=== PATIENT | female | born 1960 | race Caucasian/White ===

== ENCOUNTER → 2016-12-30 | Outpatient (REF) | payer OTHER ==
[~2016-12-30] MED LIST: MOTR200T44 PO; NAPR250T4; OXYB10TA
== END ==
LOC: M LAB REF 09:09
PROVIDERS: ATTEND Physician Assistant
DX: N39.0 Urinary tract infection, site not specified (principal)

== ENCOUNTER → 2017-01-03 | Outpatient (REF) | payer OTHER | LOC: M LAB REF 21:08 | PROVIDERS: ATTEND Physician Assistant Medical | DX: R30.0 Dysuria (principal) ==

== ENCOUNTER → 2017-02-03 | Outpatient (CLI) | payer OTHER ==
--- NOTE | 2017-02-03 10:11 | REP ---
RIGHT ANKLE SERIES: Four views of the right ankle are performed. There is no evidence of acute fracture or dislocation. Ankle mortise is anatomic. There is a tiny spur of the medial malleolus. There is moderate inferior calcaneal spurring. IMPRESSION: No fracture or dislocation. Inferior calcaneal spurring. Signed by Amilcar Menendez MD 02/03/2017 05:09 P
== END ==
LOC: M RAD 09:19
PROVIDERS: ATTEND Student in an Organized Health Care Education/Training Program
DX: M25.571 Pain in right ankle and joints of right foot (principal)

== ENCOUNTER → 2017-03-05 | Outpatient (REF) | payer OTHER ==
[2017-03-05 16:08] LABS: ANION GAP 11 MEQ/L (8-16); BLOOD UREA NITROGEN 25 MG/DL (7-18); CALCIUM LEVEL 8.6 MG/DL (8.5-10.1); CARBON DIOXIDE LEVEL 28 MEQ/L (21-32); CHLORIDE LEVEL 105 MEQ/L (98-107); CREATININE FOR GFR 0.64 MG/DL (0.55-1.02); GLOMERULAR FILTRATION RATE > 60.0 (>51); GLUCOSE, FASTING 98 MG/DL (70-105); POTASSIUM SERUM 3.9 MEQ/L (3.5-5.1); SODIUM LEVEL 144 MEQ/L (136-145)
== END ==
LOC: M SFHCPLAZ 12:31
PROVIDERS: ATTEND Family Medicine
DX: R79.89 Other specified abnormal findings of blood chemistry (principal)

== ENCOUNTER 2017-03-20 13:05 | Emergency (ER) | payer OTHER ==
[~2017-03-20] VITALS: Ht 154.9 cm; Wt 86.4 kg
[2017-03-20] MEDS ORDERED: OXYB10TA (13:32)
[2017-03-20] MEDS ORDERED: NAPR250T4 (13:32)
[2017-03-20] MEDS ORDERED: MOTR200T44 PO (13:32)
[2017-03-20 14:59] VITALS: BP 125/74
--- NOTE | 2017-03-21 08:01 | REP ---
RIGHT ANKLE, FOUR VIEWS: HISTORY: Pain. COMPARISON: 02/03/2017. There is no acute fracture or dislocation. The joint space is normal in appearance. Osteophytes are present on the inferior medial malleolus and inferior calcaneus. IMPRESSION: There is no acute fracture or dislocation. Signed by Junior Mayes MD 03/21/2017 08:21 A
== END 2017-03-20 15:06 | disposition home or self-care (01) ==
LOC: M ED 13:05
DX: M25.571 Pain in right ankle and joints of right foot (principal); Z87.891 Personal history of nicotine dependence; Z79.899 Other long term (current) drug therapy; Z88.1 Allergy status to other antibiotic agents; Z88.0 Allergy status to penicillin; Z88.2 Allergy status to sulfonamides

== ENCOUNTER 2017-05-20 16:44 | Emergency (ER) | payer OTHER ==
[~2017-05-20] VITALS: Ht 154.9 cm; Wt 81.8 kg
--- NOTE | 2017-05-20 17:54 | REP ---
Clinical: Pain. Technique: AP, lateral, bilateral oblique and sunrise views of the left knee. Findings: Moderate tricompartmental arthritic degenerative changes include subchondral sclerosis, joint space narrowing, cortical irregularity to the femoral condyles as well as subchondral sclerosis along the posterior patellar margin with small lateral spur. No acute fracture dislocation. No effusion. Impression: Moderate tricompartmental degenerative changes. Signed by Tevin Terry MD 05/20/2017 05:45 P
--- NOTE | 2017-05-20 18:29 | REP ---
Clinical: Pain and swelling. Technique: Menendez scale and color Doppler evaluation using linear high frequency transducer. Findings: Ultrasound examination of the left lower extremity deep venous structures from the common femoral vein to the popliteal vein demonstrates normal compressibility flow and wave patterns in response to respiration and augmentation. There is no evidence for deep venous thrombosis. Impression: No evidence for deep venous thrombosis. Signed by Tevin Terry MD 05/20/2017 06:20 P
[2017-05-20] MEDS ORDERED: ULTR50TA8 PO (19:41)
[2017-05-20 19:48] VITALS: BP 141/77
== END 2017-05-20 20:10 | disposition home or self-care (01) ==
LOC: M ED 16:44
DX: M17.12 Unilateral primary osteoarthritis, left knee (principal); J45.909 Unspecified asthma, uncomplicated; N94.9 Unspecified condition associated with female genital organs and menstrual cycle; Z79.899 Other long term (current) drug therapy; Z88.1 Allergy status to other antibiotic agents; Z88.8 Allergy status to other drugs, medicaments and biological substances; Z88.0 Allergy status to penicillin

== ENCOUNTER 2017-06-18 09:55 | Emergency (ER) | payer OTHER ==
[2017-06-18] MEDS: NS 1,000 ML IV (10:06)
[2017-06-18 10:15] LABS: BASO # 0.1 10^3/uL (0.0-0.2); BASO % 0.9 % (0.0-1.0); EOS # 0.2 10^3/uL (0.0-0.50); EOS % 2.6 % (0.0-3.0); IMMATURE GRANULOCYTE % 0.6 % (0-0); LYMPH # 1.3 10^3/uL (1.5-4.5); LYMPH % 20.5 % (24.0-44.0); MEAN CORPUSCULAR HEMOGLOBIN 30.6 pg (27.0-33.0); MEAN CORPUSCULAR HGB CONC 34.1 g/dl (32.0-36.5); MEAN CORPUSCULAR VOLUME 89.5 fl (80.0-96.0); MONO # 0.5 10^3/uL (0.0-0.8); MONO % 7.8 % (0.0-5.0); NEUTROPHILS # 4.4 10^3/uL (1.8-7.7); NEUTROPHILS % 67.6 % (36.0-66.0); PLATELET COUNT, AUTOMATED 294 10^3/uL (150-450); RED CELL DISTRIBUTION WIDTH 12.7 % (11.5-14.5); WHITE BLOOD COUNT 6.4 10^3/uL (4.0-10.0)
[2017-06-18 10:40] LABS: ALBUMIN 3.9 GM/DL (3.2-5.2); ALBUMIN/GLOBULIN RATIO 1.11 (1.00-1.93); ALKALINE PHOSPHATASE 82 U/L (45-117); ALT/SGPT 23 U/L (12-78); ANION GAP 5 MEQ/L (8-16); AST/SGOT 12 U/L (7-37); BILIRUBIN,DIRECT < 0.1 MG/DL (0.0-0.2); BILIRUBIN,TOTAL 0.4 MG/DL (0.2-1.0); BLOOD UREA NITROGEN 16 MG/DL (7-18); CALCIUM LEVEL 8.8 MG/DL (8.5-10.1); CARBON DIOXIDE LEVEL 28 MEQ/L (21-32); CHLORIDE LEVEL 106 MEQ/L (98-107); CREATININE FOR GFR 0.68 MG/DL (0.55-1.02); GLOMERULAR FILTRATION RATE > 60.0 (>51); GLUCOSE, FASTING 111 MG/DL (70-105); SODIUM LEVEL 139 MEQ/L (136-145); TOTAL PROTEIN 7.4 GM/DL (6.4-8.2)
[2017-06-18 11:35] LABS: AMORPHOUS SEDIMENT RFX SMALL (NEGATIVE); KETONE, URINE AUTO RFX NEGATIVE (NEGATIVE); LEUKOCYTE ESTERASE UR AUTO RFX NEGATIVE (NEGATIVE); MUCUS, URINE RFX SMALL (NEGATIVE); NITRITE, URINE AUTO RFX NEGATIVE (NEGATIVE); RBC, URINE AUTO RFX TNTC /HPF (0-3); SPECIFIC GRAVITY UR AUTO RFX 1.008 (1.002-1.035); SQUAM EPITHELIAL CELL UR AURFX 1 /HPF (0-6); WBC, URINE AUTO RFX 2 /HPF (0-3)
== END 2017-06-18 14:48 | disposition home or self-care (01) ==
LOC: M ED 09:55
DX: R10.9 Unspecified abdominal pain (principal); Z87.442 Personal history of urinary calculi; N20.0 Calculus of kidney; N28.1 Cyst of kidney, acquired; K57.90 Diverticulosis of intestine, part unspecified, without perforation or abscess without bleeding; J45.909 Unspecified asthma, uncomplicated; R32 Unspecified urinary incontinence; F17.200 Nicotine dependence, unspecified, uncomplicated; Z80.0 Family history of malignant neoplasm of digestive organs; Z80.3 Family history of malignant neoplasm of breast; Z83.49 Family history of other endocrine, nutritional and metabolic diseases; Z82.49 Family history of ischemic heart disease and other diseases of the circulatory system; Z79.899 Other long term (current) drug therapy; Z88.0 Allergy status to penicillin; Z88.2 Allergy status to sulfonamides; Z88.1 Allergy status to other antibiotic agents
CPT/HCPCS: 71020

== ENCOUNTER 2017-07-13 07:49 | Inpatient (IN) | payer OTHER ==
[2017-07-13] MEDS: LR 1,000 ML IV ×3 (08:15→17:52)
[2017-07-13] MEDS ORDERED: fentaNYL 100 MCG/2 ML INJECTION (J3010) As Ordered ×3 (09:55→15:04)
[2017-07-13] MEDS ORDERED: MIDAZOLAM INJ 2 MG/2 ML VIAL (J2250) As Ordered ×2 (09:55→11:45)
[2017-07-13] MEDS: MIDAZOLAM INJ 2 MG/2 ML VIAL (J2250) IV (10:14)
[2017-07-13] MEDS: fentaNYL 100 MCG/2 ML INJECTION (J3010) IV (10:14)
[2017-07-13] MEDS ORDERED: LIDOCAINE 2% INJ 100 MG/5 ML SDV (FOR ANES.) As Ordered (11:45)
[2017-07-13] MEDS ORDERED: PROPOFOL 200 MG/20 ML VIAL As Ordered (11:45)
[2017-07-13] MEDS ORDERED: dexameTHASONE 4 MG/ML 1ML VIAL (J1100) As Ordered ×2 (12:08)
[2017-07-13] MEDS ORDERED: ROPIvacaine 0.5% 30 ML INJECTION (J2795 PER 1MG) (12:43)
[2017-07-13] MEDS ORDERED: dexameTHASONE 10 MG/1 ML VIAL PRES.FREE (J1100) (12:43)
[2017-07-13] MEDS ORDERED: EPINEPHrine INJ 1 MG/ML 1ML AMP (12:43)
[2017-07-13] MEDS ORDERED: ONDANSETRON 4MG/2ML VIAL (J2405) As Ordered (15:05)
[2017-07-13] MEDS: BUPIVACAINE HCL 0.5% 30 ML VIAL As Ordered (15:19)
[2017-07-13] MEDS ORDERED: MORPHINE 10 MG/ML 1ML VIAL IV (16:15)
[2017-07-13] MEDS ORDERED: fentaNYL 100 MCG/2 ML INJECTION (J3010) IV (16:15)
[2017-07-13] MEDS ORDERED: MORPHINE 2 MG/ML 1ML SYRINGE IV (16:45)
[2017-07-13] MEDS: ONDANSETRON 4MG/2ML VIAL (J2405) IV (16:53)
[2017-07-13] MEDS: oxyCODONE 5MG TAB PO (16:53)
[2017-07-13] MEDS: PANTOPRAZOLE 40MG INJ (PROTONIX) (C9113) IV (18:53)
[2017-07-13] MEDS: ONDANSETRON 4 MG TAB (S0181) PO ×2 (20:07→23:56)
[2017-07-13] MEDS: ACETAMINOPHEN 500 MG TAB PO (22:26)
[2017-07-14] MEDS: oxyCODONE 5MG TAB PO ×4 (04:05→22:35)
[2017-07-14] MEDS: ONDANSETRON 4 MG TAB (S0181) PO (04:05)
[2017-07-14] MEDS: ACETAMINOPHEN 500 MG TAB PO ×3 (05:28→20:46)
[2017-07-14] MEDS: PANTOPRAZOLE 40MG TAB (PROTONIX) PO (09:03)
[2017-07-14] MEDS: VITAMIN D 1,000 INTERNATIONAL UNITS TABLET PO (09:03)
[2017-07-14] MEDS: ASPIRIN 81 MG CHEW TABLET PO ×2 (09:03→20:45)
[2017-07-15] MEDS: oxyCODONE 5MG TAB PO ×5 (02:48→21:26)
[2017-07-15] MEDS: ACETAMINOPHEN 500 MG TAB PO ×3 (05:40→21:25)
[2017-07-15] MEDS: VITAMIN D 1,000 INTERNATIONAL UNITS TABLET PO (08:43)
[2017-07-15] MEDS: ASPIRIN 81 MG CHEW TABLET PO ×2 (08:44→21:24)
[2017-07-15] MEDS: PANTOPRAZOLE 40MG TAB (PROTONIX) PO (08:44)
[2017-07-15] MEDS: ONDANSETRON 4 MG TAB (S0181) PO (08:47)
[2017-07-16] MEDS: oxyCODONE 5MG TAB PO ×3 (04:18→13:33)
[2017-07-16] MEDS: ACETAMINOPHEN 500 MG TAB PO ×2 (05:52→14:07)
[2017-07-16] MEDS: VITAMIN D 1,000 INTERNATIONAL UNITS TABLET PO (09:07)
[2017-07-16] MEDS: ASPIRIN 81 MG CHEW TABLET PO (09:07)
[2017-07-16] MEDS: PANTOPRAZOLE 40MG TAB (PROTONIX) PO (09:07)
== END 2017-07-16 16:30 | disposition home health service (06) | DRG 317 ==
LOC: M OR 07:49 → M MS5PR 17:35
PROC: 0LXV0ZZ Transfer Right Foot Tendon, Open Approach (ICD-10-PCS; principal; 2017-07-13 10:15)
PROC: 0LBN0ZZ Excision of Right Lower Leg Tendon, Open Approach (ICD-10-PCS; 2017-07-13 10:15)
DX: M21.41 Flat foot [pes planus] (acquired), right foot (principal); N32.81 Overactive bladder; M76.821 Posterior tibial tendinitis, right leg; J45.20 Mild intermittent asthma, uncomplicated; Z88.0 Allergy status to penicillin; Z88.2 Allergy status to sulfonamides; Z88.8 Allergy status to other drugs, medicaments and biological substances

== ENCOUNTER → 2018-05-05 | Outpatient (REF) | payer OTHER ==
[2018-05-06 10:47] LABS: HEPATITIS C VIRUS ABY INDEX 0.1 INDEX (<0.8)
[2018-05-06 10:47] LABS: HEPATITIS B SURFACE ANTIBODY NEGATIVE (POSITIVE); HEPATITIS B SURFACE ANTIGEN NEGATIVE (NEGATIVE)
== END ==
LOC: M SFHCPLAZ 15:05
DX: Z11.59 Encounter for screening for other viral diseases (principal)

== ENCOUNTER → 2018-05-20 | Outpatient (CLI) | payer OTHER | LOC: M RAD 13:57 | DX: N28.1 Cyst of kidney, acquired (principal); K76.0 Fatty (change of) liver, not elsewhere classified | CPT/HCPCS: 76775 ==

== ENCOUNTER → 2018-09-02 | Outpatient (REF) | payer OTHER ==
[~2018-09-02] MED LIST changes: +ACET30TAB PO; +ADVI200C5 PO; +ASPI1TAB PO; +CLIN150C14 PO; +NORCOTAB PO; +OXYC-403 PO; +OXYC-517 PO; +RANI150T PO; +TAGA200T3 PO; +TYLE325C PO; +ULTR50TA8 PO; +VITA100067 PO; +VITA400C7 PO; +VITA500T53 PO
[2018-09-02 13:44] LABS: C REACTIVE PROTEIN QUANTITATIV 1.35 MG/DL (0.00-0.30); RHEUMATOID FACTOR QUANT < 10.0 IU/ML (<15.0)
[2018-09-03 14:37] LABS: ANTINUCLEAR ANTIBODIES DIRECT Negative (Negative)
== END ==
LOC: M LABDRAW1 13:10
PROVIDERS: ATTEND Orthopaedic Surgery
DX: M19.041 Primary osteoarthritis, right hand (principal)

== ENCOUNTER → 2019-03-24 | Outpatient (REF) | payer OTHER ==
[~2019-03-24] MED LIST changes: +ACET-716 PO; -ACET30TAB PO; -ASPI1TAB PO; +ASPI81TA26 PO; +HYDR-3715 PO; -NORCOTAB PO; -OXYB10TA; +OXYB10TA23; +VITA500T17 PO; -VITA500T53 PO
[2019-03-24 21:30] LABS: APPEARANCE, URINE TURBID (CLEAR); BACTERIA, URINE AUTO NEGATIVE (NEGATIVE); BILIRUBIN, URINE AUTO NEGATIVE (NEGATIVE); BLOOD, URINE BLOOD 2+ (NEGATIVE); COLOR, URINE AMBER (YELLOW); GLUCOSE, URINE (UA) AUTO NEGATIVE (NEGATIVE); KETONE, URINE AUTO NEGATIVE (NEGATIVE); LEUKOCYTE ESTERASE, URINE AUTO 2+ (NEGATIVE); NITRITE, URINE AUTO NEGATIVE (NEGATIVE); PROTEIN, URINE AUTO 2+ mg/dL (NEGATIVE); RBC, URINE AUTO TNTC /HPF (0-3); SPECIFIC GRAVITY URINE AUTO 1.016 (1.002-1.035); SQUAMOUS EPITHELIAL CELL UR AU 3 /HPF (0-6); UROBILINOGEN, URINE AUTO 0.2 mg/dL (0.0-2.0); WBC, URINE AUTO TNTC /HPF (0-3)
== END ==
LOC: M LAB REF 09:03
PROVIDERS: ATTEND Physician Assistant
DX: N39.0 Urinary tract infection, site not specified (principal)

== ENCOUNTER → 2019-07-24 | Outpatient (CLI) | payer OTHER ==
[2019-07-24 11:31] LABS: HEMOGLOBIN 14.7 g/dl (12.0-15.5); MEAN CORPUSCULAR HEMOGLOBIN 29.9 pg (27.0-33.0); MEAN CORPUSCULAR VOLUME 93.7 fl (80.0-96.0); PLATELET COUNT, AUTOMATED 300 10^3/uL (150-450); RED BLOOD COUNT 4.91 10^6/uL (4.00-5.40); WHITE BLOOD COUNT 6.6 10^3/uL (4.0-10.0)
[2019-07-24 11:59] LABS: BLOOD UREA NITROGEN 19 MG/DL (7-18); CALCIUM LEVEL 9.6 MG/DL (8.8-10.2); CARBON DIOXIDE LEVEL 33 MEQ/L (21-32); CHLORIDE LEVEL 102 MEQ/L (98-107); CREATININE FOR GFR 0.82 MG/DL (0.55-1.30); FERRITIN 116 NG/ML (8-252); GLOMERULAR FILTRATION RATE > 60.0 (>45); GLUCOSE, FASTING 108 MG/DL (70-100); IRON (FE) 69 UG/DL (50-170); PERCENT SATURATION 12.2 % (13.2-45.0); POTASSIUM SERUM 4.1 MEQ/L (3.5-5.1); SODIUM LEVEL 138 MEQ/L (136-145); TOTAL IRON BINDING CAPACITY 566 UG/DL (250-450)
[2019-07-24 12:03] LABS: FOLATE > 24.0 NG/ML (>5.4); VITAMIN B12 LEVEL 1909 PG/ML (247-911)
[2019-07-24 12:04] LABS: HEMOGLOBIN A1c 6.1 %
== END ==
LOC: M LAB 10:36
PROVIDERS: ATTEND Hospitalist
DX: Z13.1 Encounter for screening for diabetes mellitus (principal); M79.605 Pain in left leg; Z87.19 Personal history of other diseases of the digestive system

== ENCOUNTER → 2019-08-14 | Outpatient (CLI) | payer OTHER ==
--- NOTE | 2019-08-14 15:49 | REP ---
BILATERAL SCREENING DIGITAL MAMMOGRAM WITH 3D TOMOSYNTHESIS: There are no palpable abnormalities or other breast complaints. The the patient states she has not had a clinical breast examination in over a year. The Tyrer-Cuzick Lifetime Breast Cancer Risk Score is: 16.6% . Comparison is 07/16/2009. The There are scattered areas of fibroglandular density. There is no dominant mass, micro calcific cluster or architectural distortion that would indicate malignancy. There is a sharply circumscribed a 10 mm nodular density superomedially in the right breast posteriorly. By previous ultrasound. This is a cyst. It is unchanged from the prior study. There are no additional findings on 3D tomosynthesiss. There is no change from the prior study. Impression: BIRADS/ACR category 2 mammogram. Benign findings. Recommendation: Routine annual screening mammography. This mammogram was interpreted with the aid of a FDA approved computer-aided detection system. A. Negative mammogram reports should not delay biopsy if a dominant or clinically suspicious mass is present. B. Not all breast cancers are identified by mammography or tomosynthesis. C. Adenosis and dense breasts may obscure an underlying neoplasm. Patient letter M1. Electronically Signed by Amilcar Crump MD 08/14/2019 03:41 P
== END ==
LOC: M WHC 14:43
PROVIDERS: ATTEND Hospitalist
DX: Z12.31 Encounter for screening mammogram for malignant neoplasm of breast (principal)

== ENCOUNTER → 2019-09-10 | Outpatient (REF) | payer MEDICAID ==
[2019-09-10 17:59] LABS: APPEARANCE, URINE HAZY (CLEAR); BACTERIA, URINE AUTO 1+ (NEGATIVE); BILIRUBIN, URINE AUTO NEGATIVE (NEGATIVE); BLOOD, URINE BLOOD 2+ (NEGATIVE); COLOR, URINE YELLOW (YELLOW); GLUCOSE, URINE (UA) AUTO NEGATIVE (NEGATIVE); KETONE, URINE AUTO NEGATIVE (NEGATIVE); LEUKOCYTE ESTERASE, URINE AUTO 1+ (NEGATIVE); MUCUS, URINE SMALL (NEGATIVE); NITRITE, URINE AUTO NEGATIVE (NEGATIVE); PROTEIN, URINE AUTO NEGATIVE (NEGATIVE); RBC, URINE AUTO 127 /HPF (0-3); SPECIFIC GRAVITY URINE AUTO 1.015 (1.002-1.035); SQUAMOUS EPITHELIAL CELL UR AU 2 /HPF (0-6); UROBILINOGEN, URINE AUTO 0.2 mg/dL (0.0-2.0); WBC, URINE AUTO 43 /HPF (0-3)
== END ==
LOC: M LAB REF 17:03
PROVIDERS: ATTEND Physician Assistant Medical
DX: R30.0 Dysuria (principal)

== ENCOUNTER 2019-12-25 19:25 | Inpatient (IN) | payer MEDICARE, OTHER ==
[~2019-12-25] VITALS: Ht 154.9 cm; Wt 114.6 kg
[2019-12-25] MEDS ORDERED: NS 1,000 ML IV SCH (19:54)
[2019-12-25] MEDS ORDERED: ONDANSETRON 4MG/2ML VIAL IV ONE (20:00)
[2019-12-25] MEDS ORDERED: MORPHINE 4 MG/ML 1ML VIAL/SYRINGE (J2270) IV ONE (20:00)
[2019-12-25 20:31] LABS: BASO # 0.1 10^3/uL (0.0-0.2); BASO % 0.6 % (0.0-1.0); EOS # 0.3 10^3/uL (0.0-0.5); EOS % 2.9 % (0.0-3.0); HEMATOCRIT 42.6 % (36.0-47.0); HEMOGLOBIN 14.1 g/dl (12.0-15.5); LYMPH % 20.8 % (24.0-44.0); MEAN CORPUSCULAR HEMOGLOBIN 29.9 pg (27.0-33.0); MEAN CORPUSCULAR HGB CONC 33.1 g/dl (32.0-36.5); MEAN CORPUSCULAR VOLUME 90.3 fl (80.0-96.0); MONO # 0.6 10^3/uL (0.0-0.8); MONO % 6.7 % (0.0-5.0); NEUTROPHILS # 6.5 10^3/uL (1.5-8.5); NEUTROPHILS % 68.4 % (36.0-66.0); PLATELET COUNT, AUTOMATED 295 10^3/uL (150-450); RED BLOOD COUNT 4.72 10^6/uL (4.00-5.40); WHITE BLOOD COUNT 9.6 10^3/uL (4.0-10.0)
[2019-12-25 20:52] LABS: ALBUMIN 3.7 GM/DL (3.2-5.2); ALT/SGPT 35 U/L (12-78); BILIRUBIN,DIRECT < 0.1 MG/DL (0.0-0.2); BILIRUBIN,TOTAL 0.3 MG/DL (0.2-1.0); BLOOD UREA NITROGEN 19 MG/DL (7-18); CALCIUM LEVEL 9.2 MG/DL (8.8-10.2); CARBON DIOXIDE LEVEL 26 MEQ/L (21-32); CHLORIDE LEVEL 104 MEQ/L (98-107); CREATININE FOR GFR 1.03 MG/DL (0.55-1.30); GLOMERULAR FILTRATION RATE 58.2 (>45); GLUCOSE, FASTING 101 MG/DL (70-100); LIPASE 227 U/L (73-393); POTASSIUM SERUM 4.2 MEQ/L (3.5-5.1); SODIUM LEVEL 139 MEQ/L (136-145); TOTAL PROTEIN 7.1 GM/DL (6.4-8.2)
[2019-12-25] MEDS ORDERED: KETOROLAC 30 MG/ML 1ML VIAL IV ONE (21:15)
[2019-12-25] MEDS ORDERED: CIPROFLOXACIN 400 MG in IV 1 EA IV ONE (22:15)
[2019-12-25] MEDS ORDERED: OXYB10TA23 PO (22:25)
[2019-12-25] MEDS ORDERED: TAGA200T3 PO (22:25)
[2019-12-25] MEDS ORDERED: PHEN-501 PO (22:25)
--- NOTE | 2019-12-25 22:29 | HPEPDOC ---
[facility] Medical History & Physical Date of Admission Dec 25, 2019 Date of Service: Dec 25, 2019 Attending Physician: Marie Cooper MD History and Physical CHIEF COMPLAINT: Right flank pain HISTORY OF PRESENT ILLNESS: Patient is a 59-year-old female with past medical history of recurrent kidney stones, history of recurrent urinary tract infection, obesity who presented to [facility] emergency room after having worsening right flank pain. Patient states she started having suprapubic pressure beginning in the evening on 12/24/19, felt that she was getting a urinary tract infection. Right flank pain started this AM, 10/10, sharp, shooting around the right flank towards the anterior groin. Patient has had this in the past with kidney stones but not this severe. Other associated symptoms include nausea from the pain. Denies fevers, chills, shortness of breath, diarrhea, recent illness, chest pain. In the ER, VS were stable. WBC and CMP were unremarkable. UA + for UTI. CT abdomen and pelvis showed 3 millimeter stone in the distal right ureter with mild hydronephrosis. The patient was given 1 mg of morphine which helped only minimally. Toradol IV helped some but only brought the pain down to 5 out of 10. Urology was contacted and recommended inpatient admission with urology consultation. The patient was admitted for right ureterolithiasis, urinary tract infection. REVIEW OF SYSTEMS: Negative except for what is mentioned above PAST MEDICAL HISTORY: 1. Hx of recurrent kidney stones, none ever needing intervention 2. Hx of recurrent urinary tract infections 3. Obesity PAST SURGICAL HISTORY: 1. Right ankle surgery 2. Total hysterectomy 3. Appendectomy FAMILY HISTORY: Father: cancer, type unknown. in 60's Mother: breast cancer. in 30's Siblings: sister- breast cancer, Alive SOCIAL HISTORY: Prior smoker, 8 years <1 PPD, quit 12 years ago. Social alcohol use, denies illicit drug use. PCP- Dr. Riojas. Full Code. ALLERGIES: Please see below. HOME MEDICATIONS: Please see below. PHYSICAL EXAMINATION: CONSTITUTIONAL: Appears very uncomfortable in pain. AAO x 3 EYES: PERRLA, EOM intact HENT, MOUTH: Normocephalic, atraumatic, moist mucous membranes, NECK: SUPPLE, no JVD, no lymphadenopathy, no carotid bruit CV: Regular rate and rhythm, S1S2 normal, no murmurs/rubs/gallops RESPIRATORY: Clear to auscultation bilaterally, no rales/rhonchi/wheezes GI: obese abdomen, BS positive in 4 quadrants, soft, nontender, nondistended, no rebound or guarding, no organomegaly BACK: right flank pain with palpation, pain radiates to the right groin with tapping over right kidney : Deferred MUSCULOSKELETAL: Normal ROM. No cyanosis, clubbing, swelling, joint deformity, extremity edema INTEGUMENTARY: Intact, no rashes, no lesions, no erythema NEUROLOGIC: Cranial Nerves II-XII are intact, no focal deficits PSYCHIATRIC: Mood and affect are normal LABORATORY DATA: Please see below IMAGING: CT abd/pelvis (prelim reading): 3 mm stone in right distal ureter, mild hydronephrosis ASSESSMENT: 59-year-old female with past medical history of recurrent kidney stones, history of recurrent urinary tract infection and obesity who was adm itted for right ureterolithiasis, urinary tract infection. PLAN: 1. Right ureterolithiasis with mild hydroureter -CT above -Cr wnl -C/w IVFs, morphine PRN -F/u daily labs, UCx -Urology consulted 2. UTI, hx of recurrent UTI -F/u UCx -Ceftriaxone 3. DVT px. -Enoxaparin daily DISPOSITION: Admitted under inpatient status. Urology to see in the AM. Plan is discharge home when medically improved. Vital Signs Vital Signs Date Time Temp Pulse Resp B/P (MAP) Pulse Ox O2 Delivery O2 Flow Rate FiO2 12/25/19 20:39 18 12/25/19 19:32 12/25/19 19:25 98.4 94 96 Room Air Laboratory Data Labs 24H Laboratory Tests 2 12/25/19 20:12: Immature Granulocyte % (Auto) 0.6, Neutrophils (%) (Auto) 68.4H, Lymphocytes (%) (Auto) 20.8L, Monocytes (%) (Auto) 6.7H, Eosinophils (%) (Auto) 2.9, Basophils (%) (Auto) 0.6, Neutrophils # (Auto) 6.5, Lymphocytes # (Auto) 2.0, Monocytes # (Auto) 0.6, Eosinophils # (Auto) 0.3, Basophils # (Auto) 0.1, Nucleated Red Blood Cells % (auto) 0.0, Urine Color KAREEN, Urine Appearance CLOUDYH, Urine pH 5.0, Urine Specific [place] 1.023, Urine Protein 1+H, Urine Glucose (UA) NEGATIVE, Urine Ketones NEGATIVE, Urine Blood 3+H, Urine Nitrite POSITIVEH, Urine Bilirubin NEGATIVE, Urine Urobilinogen 4.0H, Urine Leukocyte Esterase 1+H, Urine WBC (Auto) TNTCH, Urine RBC (Auto) TNTCH, Urine Hyaline Casts (Auto) 0, Urine Bacteria (Auto) 1+H, Urine Squamous Epithelial Cells 4, Urine Transitional Epithelial Cells <1, Urine Calcium Oxalate Cryst (Auto) SMALL, Urine Mucus (Auto) SMALL, Urine Sperm (Auto) , Anion Gap 9, Glomerular Filtration Rate 58.2, Calcium Level 9.2, Total Bilirubin 0.3, Direct Bilirubin < 0.1, Aspartate Amino Transf (AST/SGOT) 19, Alanine Aminotransferase (ALT/SGPT) 35, Alkaline Phosphatase 90, Total Protein 7.1, Albumin 3.7, Albumin/Globulin Ratio 1.1L, Lipase 227 CBC/BMP Laboratory Tests 12/25/19 20:12 Microbiology Microbiology 12/25/19 Urine Culture, Received Pending Home Medications Scheduled Cimetidine (Tagamet Hb) 200 Mg Tablet, 200 MG PO DAILY Oxybutynin Chloride (Oxybutynin Chloride ER) 10 Mg Tab.er.24, 10 MG PO DAILY Scheduled PRN Phenazopyridine HCl (Phenazopyridine HCl) 200 Mg Tablet, 200 MG PO TID PRN for PAIN Allergies Coded Allergies: Penicillins (Verified Allergy, Intermediate, HIVES, 12/25/19) Latex, Natural Rubber (Verified Allergy, Mild, RASH, 12/25/19) Sulfa (Sulfonamide Antibiotics) (Unverified Allergy, Unknown, 12/25/19) bacitracin (Verified Adverse Reaction, Mild, GENERALIZED BURNING, 12/25/19) neomycin (Verified Adverse Reaction, Mild, GENERALIZED BURNING, 12/25/19) polymyxin B (Verified Adverse Reaction, Mild, GENERALIZED BURNING, 12/25/19) A-FIB/CHADSVASC A-FIB History Current/History of A-Fib/PAF?: No Current PO Anticoag Therapy: No Age/Risk Factor Scoring CHADSVASC: CHADSVASC Response (Comments) Value Age Risk Factor Age < 65 years old 0 Gender Risk Factor Female 1 Hx of CHF No 0 Hx of HTN No 0 Hx of Stroke/TIA/or VTE No 0 Hx of Diabetes No 0 Hx of Vascular Disease No 0 Total 1 Treatment Treatment ordered: Other Other anticoagulant ordered: enoxaparin Marie Cooper MD Dec 25, 2019 22:29
[2019-12-25] MEDS ORDERED: ACETAMINOPHEN TAB 650MG DOSE (2X325MG) PO PRN (22:30)
[2019-12-25] MEDS ORDERED: MORPHINE 2 MG/ML 1ML VIAL (J2270) IV PRN ×2 (22:30→23:00)
[2019-12-25 23:20] VITALS: BP 132/94
[2019-12-25] MEDS: ACETAMINOPHEN TAB 650MG DOSE (2X325MG) PO SCH (23:38)
[2019-12-26] VITALS (7 sets, daily range): BP systolic 107–146; BP diastolic 63–98
[2019-12-26] MEDS: ONDANSETRON 4MG/2ML VIAL IV PRN ×2 (00:13→06:41)
[2019-12-26 01:09] LABS: INR 1.06; PROTHROMBIN TIME 13.5 SECONDS (11.8-14.0)
[2019-12-26 01:10] LABS: PARTIAL THROMBOPLASTIN TIME 30.3 SECONDS (25.0-38.4)
[2019-12-26] MEDS: NS 1,000 ML IV SCH ×3 (01:12→22:23)
[2019-12-26] MEDS ORDERED: MORPHINE 2 MG/ML 1ML VIAL (J2270) IV PRN (04:30)
[2019-12-26] MEDS: ACETAMINOPHEN TAB 650MG DOSE (2X325MG) PO SCH ×4 (05:54→23:05)
[2019-12-26 06:09] LABS: HEMATOCRIT 42.1 % (36.0-47.0); HEMOGLOBIN 13.8 g/dl (12.0-15.5); MEAN CORPUSCULAR HEMOGLOBIN 29.9 pg (27.0-33.0); MEAN CORPUSCULAR HGB CONC 32.8 g/dl (32.0-36.5); MEAN CORPUSCULAR VOLUME 91.3 fl (80.0-96.0); PLATELET COUNT, AUTOMATED 280 10^3/uL (150-450); RED BLOOD COUNT 4.61 10^6/uL (4.00-5.40); WHITE BLOOD COUNT 10.6 10^3/uL (4.0-10.0)
[2019-12-26 06:37] LABS: ALBUMIN 3.3 GM/DL (3.2-5.2); BILIRUBIN,TOTAL 0.4 MG/DL (0.2-1.0); CALCIUM LEVEL 8.7 MG/DL (8.8-10.2); CREATININE FOR GFR 1.2 MG/DL (0.55-1.30); GLOMERULAR FILTRATION RATE 48.8 (>45); POTASSIUM SERUM 4.5 MEQ/L (3.5-5.1); TOTAL PROTEIN 6.5 GM/DL (6.4-8.2)
[2019-12-26] MEDS ORDERED: NS 500 ML IV ONE (07:15)
[2019-12-26] MEDS ORDERED: CLINDAMYCIN 600 MG in IV 1 EA IV ONE (07:15)
--- NOTE | 2019-12-26 07:47 | SMCUROLCON ---
Urology Consultation General Date of Consultation 12/26/19 Reason For Consultation This patient is seen for Ureterolithiasis, Uti. History of Present Illness The patient is a 59-year-old white female with a past medical history for presumed calculi. She tells me that she was in her usual state of health until about 2 days ago when she began having some vague abdominal discomfort. This became right lower back pain and right lower quadrant abdominal pain by some nausea but no vomiting. Over the next 24 hours, this pain became more severe and she presented to the emergency room last night. CT imaging showed a 3 mm distal right ureteral calculus with some hydronephrosis. She was subsequently admitted for hydration, antibiotics and pain control. Urinalysis also was consistent with cystitis. She also states that she had 2 stones in the past, both about 1 year ago. At that time she was having some back pain. She states she went to the urgent care center and was told she had a stone with medications for pain. She claims she did not have any imaging and she did not pass any stones either time. She also did not have any follow-up for these episodes. She states that she normally drinks about 16 ounces of water daily, voids about 5 times a day and 2 times at night. No history of hematuria. Past Medical History Medical History Stomach ulcer 30 years ago, chronic back pain, urinary incontinence, asthma and elevated cholesterol and obesity Surgical Hstory Right ankle surgery. 2017 Hysterectomy. Appendectomy Social History Social History Patient quit smoking 3 years ago. She states that she smokes 1/2-1 pack cigarettes daily for 9 years. with 4 grown children. She has not worked since her foot surgery in 2017 and is on SSI disability because of her foot. She denies any allergies. However, several are listed in the chart. * Smoker: former Smoker Medications Current Medications Current Medications Medications (Trade) Dose Ordered Sig/Veronica Route PRN Reason Start Time Stop Time Status Last Admin Dose Admin Acetaminophen (Tylenol Tab) 650 mg Q6H PO 12/26/19 00:00 12/26/19 05:54 Acetaminophen (Tylenol Tab) 650 mg Q6HP PRN PO PAIN / FEVER 12/25/19 22:30 12/25/19 22:54 DC Ciprofloxacin 400 mg/IV Miscellaneous Supplies 200 ml @ 200 mls/hr Q12H IV 12/26/19 10:00 Enoxaparin Sodium (Lovenox) 40 mg DAILY SC 12/26/19 09:00 Home Med (Med Rec Complete!) ASDIRECTED XX 12/25/19 22:30 12/25/19 22:27 DC Morphine Sulfate (Morphine Sulfate Inj) 1 mg Q4H PRN IV MODERATE PAIN (PS 5-7) 12/25/19 23:00 12/26/19 01:14 Morphine Sulfate (Morphine Sulfate Inj) 1 mg Q6H PRN IV MODERATE PAIN (PS 5-7) 12/25/19 22:30 12/25/19 22:54 DC Morphine Sulfate (Morphine Sulfate Inj) 2 mg Q6H PRN IV SEVERE PAIN (PS 8-10) 12/26/19 04:30 12/26/19 06:42 Ondansetron HCl (ZOFRAN INJection) 4 mg Q6HP PRN IV NAUSEA OR VOMITING 12/25/19 23:00 12/26/19 06:41 Sodium Chloride 1,000 ml @ 100 mls/hr Q10H IV 12/26/19 00:15 12/26/19 01:12 Sodium Chloride 1,000 ml @ 150 mls/hr Q6H40M IV 12/25/19 19:54 12/26/19 00:18 DC 12/25/19 20:20 Allergies Allergies: Coded Allergies: Penicillins (Verified Allergy, Intermediate, HIVES, 12/25/19) Latex, Natural Rubber (Verified Allergy, Mild, RASH, 12/25/19) Sulfa (Sulfonamide Antibiotics) (Unverified Allergy, Unknown, 12/25/19) bacitracin (Verified Adverse Reaction, Mild, GENERALIZED BURNING, 12/25/19) neomycin (Verified Adverse Reaction, Mild, GENERALIZED BURNING, 12/25/19) polymyxin B (Verified Adverse Reaction, Mild, GENERALIZED BURNING, 12/25/19) Review of Systems General: Reports: Normal Appetite; Denies: Fatigue, Malaise Constitutional: Denies: Fever, Chills, Sweats, Weakness, Malaise Eyes: Denies: Pain, Vision change ENT: Denies: Head Aches, Sore Throat, Epistaxis Skin: Denies: Rash, Lesions, Breakdown, Nail Changes Pulmonary: Denies: Dyspnea, Cough Cardiovascular: Denies Chest Pain, Denies Palpitations Gastrointestinal: Denies: Nausea, Vomiting, Abdominal Pain Genitourinary: Reports: Incontinence; Denies: Dysuria, Frequency, Hematuria Hematologic: Denies: Bruising, Bleeding Excessively Endocrine: Denies: Polydipsia, Polyphagia, Polyuria Musculoskeletal: Reports: Back Pain; Denies: Neck Pain Neurological: Denies: Weakness, Numbness, Incoordination, Change in Speech Psych: Reports: Mood Normal; Denies: Anxiety, Depression Physical Examination General Exam: Alert, Cooperative, Mild Distress EYE EXAM: PERRLA, Conjunctiva & lids normal, EOMI; No: Sclera icteric ENT EXAM: Atraumatic, Mucous membr. moist/pink, Pharynx Normal Neck Exam: Supple; No: JVD, thyromegaly Chest Exam: Clear to auscultation, Normal air movement Heart Exam: Rate Normal, Regular Rhythm, Normal S1, Normal S2; No: Murmurs, Rubs Abdomen Exam: Other (abdomen is obese with some right lower quadrant discomfort to palpation. No masses are palpable.) Extremity Exam: Normal Pulses; No: Clubbing, Cyanosis, Edema Skin Exam: Nl turgor and temperature; No: Rash, Breakdown Neuro Exam: Normal Gait, Normal Speech, Cranial Nerves 3-12 NL, Reflexes 2+ Psych Exam: Mental status NL, Mood NL, Oriented x 3 Vital Signs/I&O Vital Signs Date Time Temp Pulse Resp B/P (MAP) Pulse Ox O2 Delivery O2 Flow Rate FiO2 12/26/19 06:52 19 Room Air 12/26/19 06:00 97.8 92 146/98 (114) 93 I&O- Last 24 Hours up to 6 AM 12/26/19 05:59 Intake Total 425 ml Output Total 100 ml Balance 325 ml Laboratory Data 24H Labs Laboratory Tests 2 12/25/19 20:12: Immature Granulocyte % (Auto) 0.6, Neutrophils (%) (Auto) 68.4H, Lymphocytes (%) (Auto) 20.8L, Monocytes (%) (Auto) 6.7H, Eosinophils (%) (Auto) 2.9, Basophils (%) (Auto) 0.6, Neutrophils # (Auto) 6.5, Lymphocytes # (Auto) 2.0, Monocytes # (Auto) 0.6, Eosinophils # (Auto) 0.3, Basophils # (Auto) 0.1, Nucleated Red Blood Cells % (auto) 0.0, Urine Color KAREEN, Urine Appearance CLOUDYH, Urine pH 5.0, Urine Specific [place] 1.023, Urine Protein 1+H, Urine Glucose (UA) NEGATIVE, Urine Ketones NEGATIVE, Urine Blood 3+H, Urine Nitrite POSITIVEH, Urine Bilirubin NEGATIVE, Urine Urobilinogen 4.0H, Urine Leukocyte Esterase 1+H, Urine WBC (Auto) TNTCH, Urine RBC (Auto) TNTCH, Urine Hyaline Casts (Auto) 0, Urine Bacteria (Auto) 1+H, Urine Squamous Epithelial Cells 4, Urine Transitional Epithelial Cells <1, Urine Calcium Oxalate Cryst (Auto) SMALL, Urine Mucus (Auto) SMALL, Urine Sperm (Auto) , Anion Gap 9, Glomerular Filtration Rate 58.2, Calcium Level 9.2, Total Bilirubin 0.3, Direct Bilirubin < 0.1, Aspartate Amino Transf (AST/SGOT) 19, Alanine Aminotransferase (ALT/SGPT) 35, Alkaline Phosphatase 90, Total Protein 7.1, Albumin 3.7, Albumin/Globulin Ratio 1.1L, Lipase 227 12/26/19 00:28: Prothrombin Time 13.5, Prothromb Time International Ratio 1.06, Activated Partial Thromboplast Time 30.3 12/26/19 05:39: Nucleated Red Blood Cells % (auto) 0.0, Anion Gap 7L, Glomerular Filtration Rate 48.8, Calcium Level 8.7L, Total Bilirubin 0.4, Aspartate Amino Transf (AST/SGOT) 19, Alanine Aminotransferase (ALT/SGPT) 31, Alkaline Phosphatase 82, Total Protein 6.5, Albumin 3.3, Albumin/Globulin Ratio 1.0L CBC/BMP Laboratory Tests 12/25/19 20:12 12/26/19 05:39 Microbiology Microbiology 12/25/19 Urine Culture, Received Pending Assessment Right ureteral calculus Plan Patient will have hydration today with IV bolus, to hopefully pass a 3 mm calculus. If unsuccessful, she will need cystoscopy with right retrograde pyelogram, stent insertion, possible ureteroscopic laser lithotripsy for the stone. I discussed with her the possibility that the stone is the same one that she was complaining of about a year ago. If so, there is a good chance the stone may be impacted in the ureteral tissue, making removal unwise at this time. If that is the case or if there is any infection behind the stone, a simple stent will be inserted and she will need another procedure in the future for ure teroscopic treatment of the stone, possible complications were discussed with her including infection, pain, perforation, strictures, bleeding and damage to the ureter or kidney. She has accepted these and has agreed to continue with the procedure of the stone does not pass by this afternoon. Time Spent on Consult: Time Spent / Consult (Minutes): 80 ERICKA WREN MD Dec 26, 2019 07:47
[2019-12-26] MEDS: TAMSULOSIN 0.4 MG CAP PO SCH (08:56)
[2019-12-26] MEDS: CIPROFLOXACIN 400 MG in IV 1 EA IV SCH ×2 (08:56→23:05)
[2019-12-26] MEDS: ENOXAPARIN 40MG/0.4ML SYRINGE (J1650 PER 10MG) SC SCH (08:56)
[2019-12-26] MEDS ORDERED: ISOVUE-300 61% 50ML VIAL As Ordered ONE (09:41)
--- NOTE | 2019-12-26 14:33 | REP ---
CT ABDOMEN AND PELVIS WITHOUT CONTRAST: CT abdomen and pelvis performed without oral or IV contrast. Sagittal and coronal reconstruction images are performed. The visualized lung bases demonstrate a stable 4 mm nodular density on the left, unchanged since the CT of 06/18/2017. There is diffuse fatty infiltration of the liver. There are gallstones in the gallbladder. There is no definite gallbladder wall edema. The spleen is grossly unremarkable. Smaller calcifications are seen in the left adrenal gland with no mass. The pancreas is grossly unremarkable. Punctate calcification is seen in the right kidney lower pole collecting system. Another is seen in the left upper pole collecting system. Two cysts are seen in the lower pole of the left kidney measuring 2 cm and 3 cm in diameter. 3 mm stone is seen in the distal right ureter causing mild right hydronephrosis. There is calcification of the abdominal aorta with no aneurysm. There is no adenopathy, free air or free fluid. No bowel wall thickening is seen. No pelvic mass is seen. There are degenerative changes of the spine with mild anterolisthesis of the L4 on L5. IMPRESSION: There is a 3 mm stone in the distal right ureter causing mild right hydronephrosis. Punctate intrarenal calculus bilaterally. No left hydronephrosis. Gallstones in the gallbladder without definite gallbladder edema. No free air or free fluid. Preliminary report provided by [facility] at the time of the exam. Electronically Signed by Amilcar Menendez MD 12/26/2019 07:39 P
--- NOTE | 2019-12-26 16:30 | IPNPDOC ---
Text Note Date of Service The patient was seen on 12/26/19. NOTE SUBJECTIVE: Continues to have right lower quadrant pain with radiation to the back. No fever or chills. No nausea or vomiting or diarrhea. PHYSICAL EXAMINATION: VITALS: As below CONSTITUTIONAL: Appears very uncomfortable in pain. AAO x 3 EYES: PERRLA, EOM intact HENT, MOUTH: Normocephalic, atraumatic, moist mucous membranes, NECK: SUPPLE, no JVD, no lymphadenopathy, no carotid bruit CV: Regular rate and rhythm, S1S2 normal, no murmurs/rubs/gallops RESPIRATORY: Clear to auscultation bilaterally, no rales/rhonchi/wheezes GI: obese abdomen, BS positive in 4 quadrants, soft, nontender, nondistended, no rebound or guarding, no organomegaly BACK: right flank pain with palpation, pain radiates to the right groin with tapping over right kidney : Deferred MUSCULOSKELETAL: Normal ROM. No cyanosis, clubbing, swelling, joint deformity, extremity edema INTEGUMENTARY: Intact, no rashes, no lesions, no erythema NEUROLOGIC: Cranial Nerves II-XII are intact, no focal deficits PSYCHIATRIC: Mood and affect are normal LABORATORY DATA: Please see below IMAGING: CT abd/pelvis (prelim reading): 3 mm stone in right distal ureter, mild hydronephrosis ASSESSMENT: 59-year-old female with past medical history of recurrent kidney stones, history of recurrent urinary tract infection and obesity who was admitted for right ureterolithiasis, urinary tract infection. Right ureterolithiasis with mild hydroureter -CT above -Cr wnl -C/w IVFs, morphine PRN -F/u daily labs, UCx -Urology consult appreciated UTI, hx of recurrent UTI -F/u UCx -Ceftriaxone Morbid Obesity complicating care. DVT px. -Enoxaparin daily VS,Fishbone, I+O VS, Fishbone, I+O Laboratory Tests 12/25/19 20:12 12/26/19 05:39 Vital Signs Date Time Temp Pulse Resp B/P (MAP) Pulse Ox O2 Delivery O2 Flow Rate FiO2 12/26/19 14:00 97.9 90 17 107/68 (81) 95 Room Air I&O- Last 24 Hours up to 6 AM 12/26/19 06:00 Intake Total 725 ml Output Total 300 ml Balance 425 ml GARCÍA TROTTER MD Dec 26, 2019 16:30
[2019-12-26] MEDS ORDERED: propofoL 200 MG/20 ML VIAL As Ordered ONE (18:11)
[2019-12-26] MEDS ORDERED: LIDOCAINE 2% 100MG/5ML SDV (FOR ANES.) As Ordered ONE (18:11)
[2019-12-26] MEDS ORDERED: fentaNYL 100 MCG/2 ML INJECTION (J3010) As Ordered ONE (18:15)
[2019-12-26] MEDS ORDERED: MIDAZOLAM INJ 2MG/2ML VIAL (J2250 PER 1MG) As Ordered ONE (18:16)
[2019-12-26] MEDS ORDERED: ACETAMINOPHEN 1000MG 100ML IV BTL (OFIRMEV) (J0131 PER 10MG) As Ordered ONE (18:24)
[2019-12-26] MEDS ORDERED: dexameTHASONE 4 MG/ML 1ML VIAL (J1100 PER 1MG) As Ordered ONE (18:32)
[2019-12-26] MEDS ORDERED: ONDANSETRON 4MG/2ML VIAL As Ordered ONE ×2 (18:36→19:23)
[2019-12-26] MEDS ORDERED: LR 1,000 ML IV SCH (19:30)
[2019-12-26] MEDS ORDERED: oxyCODONE 5MG TAB PO PRN (19:30)
[2019-12-26] MEDS ORDERED: fentaNYL 100 MCG/2 ML INJECTION (J3010) IV PRN (19:30)
[2019-12-26] MEDS ORDERED: ONDANSETRON 4MG/2ML VIAL IV PRN (19:30)
[2019-12-26] MEDS ORDERED: METOCLOPRAMIDE INJ 10MG/2ML VIAL (J2765 PER 1) IV PRN (20:00)
--- NOTE | 2019-12-26 22:59 | ROOPDOC ---
[facility] Report Of Operation Report of Operation DATE OF PROCEDURE: 12/26/19 PREPROCEDURE DIAGNOSES: Distal right ureteral calculus with hydroureteronephrosis POSTPROCEDURE DIAGNOSES: Distal right ureteral calculus with hydrou reteronephrosis PROCEDURE: Cystoscopy, right retrograde pyelogram, ureteroscopic stone extraction, stent insertion and x-ray interpretation SURGEON: Olivier Lopez MD INVENTORY ANALYST: None ANESTHESIA: Gen. ESTIMATED BLOOD LOSS: Approximately 5 mL. COMPLICATIONS: None REMARKS: . PROCEDURE NOTE: Indication for operation. This is a 59-year-old white female who originally presented with right flank pain and found on CT scan to have a 3 mm distal right ureteral calculus. When the stone failed to pass with hydration and pain medications and she continue to have pain and some be symptomatic, she was brought to the operating room for s tone extraction. DESCRIPTION OF PROCEDURE: The patient was placed on the table in supine position and given general anesthesia. Then placed in the lithotomy position, prepped with Betadine paint and draped in aseptic manner. Timeout was then performed. A 22 Kyr[place]z cystoscope was then inserted into the meatus and advanced under direct vision of a 30 lens to the bladder. The patient was found to have some. Material in the bladder. The bladder mucosa appeared normal. There was good reflux from the left ureteral orifice and no reflux from the right side. The right ureteral orifice was then catheterized with a 5 Kyrgyz open-ended Pollack catheter and retrograde injection of Conray showed the patient had a suggestion of a filling defect in the distal right ureter and hydroureteronephrosis proximal to this. The cystoscope was then removed and replaced with a ureteroscope which was advanced alongside the safety wire with the aid of a second working wire. A stone was encountered in the distal ureter just inside the intramural portion of the bladder. Was then dislodged into the distal ureter where it was trapped in a stone basket and successfully extracted intact. Inspection showed no further stones present. The ureteroscope was then exchanged for a cystoscope, which was backloaded over the safety wire. A 5 Kyrgyz double-J stent was then passed over this wire and curled well in the renal pelvis and in the bladder when the wire is removed, as visualized with the fluoroscopy. The bladder was then drained, cystoscope was removed and the patient was awakened and sent to recovery room in stable condition having tolerated the procedure well. Very interpretation formed throughout the case to identify the stones and evaluate the hydroureteronephrosis and stent placement. She will be seen back in the office in about 2 weeks stent removal. OLIVIER LOPEZ MD Dec 26, 2019 22:59
[2019-12-27 00:30] VITALS: BP 126/76
[2019-12-27] MEDS: ACETAMINOPHEN TAB 650MG DOSE (2X325MG) PO SCH (05:56)
[2019-12-27 06:00] VITALS: BP 121/77
[2019-12-27 07:12] LABS: BASO % 0.2 % (0.0-1.0); EOS % 0.1 % (0.0-3.0); HEMATOCRIT 41.5 % (36.0-47.0); HEMOGLOBIN 13.4 g/dl (12.0-15.5); LYMPH # 1.1 10^3/uL (1.5-5.0); LYMPH % 11.8 % (24.0-44.0); MEAN CORPUSCULAR HGB CONC 32.3 g/dl (32.0-36.5); MEAN CORPUSCULAR VOLUME 92.8 fl (80.0-96.0); MONO # 0.4 10^3/uL (0.0-0.8); MONO % 3.9 % (0.0-5.0); NEUTROPHILS # 7.5 10^3/uL (1.5-8.5); NEUTROPHILS % 83.6 % (36.0-66.0); PLATELET COUNT, AUTOMATED 211 10^3/uL (150-450); RED BLOOD COUNT 4.47 10^6/uL (4.00-5.40)
--- NOTE | 2019-12-27 07:28 | REP ---
C-ARM VIEW ABDOMEN: A C-arm view of the abdomen is performed. A catheter is seen. The superior end of the catheter is coiled in what appears to be the right upper quadrant. 8 seconds fluoroscopy time utilized. Electronically Signed by Amilcar Menendez MD 12/28/2019 09:18 A
[2019-12-27 07:37] LABS: BLOOD UREA NITROGEN 13 MG/DL (7-18); CALCIUM LEVEL 8.5 MG/DL (8.8-10.2); CARBON DIOXIDE LEVEL 24 MEQ/L (21-32); CHLORIDE LEVEL 111 MEQ/L (98-107); CREATININE FOR GFR 0.82 MG/DL (0.55-1.30); GLOMERULAR FILTRATION RATE > 60.0 (>45); GLUCOSE, FASTING 131 MG/DL (70-100); POTASSIUM SERUM 4.4 MEQ/L (3.5-5.1); SODIUM LEVEL 142 MEQ/L (136-145)
[2019-12-27] MEDS: NS 1,000 ML IV SCH (08:29)
[2019-12-27] MEDS: TAMSULOSIN 0.4 MG CAP PO SCH (08:29)
[2019-12-27] MEDS: ENOXAPARIN 40MG/0.4ML SYRINGE (J1650 PER 10MG) SC SCH (08:30)
[2019-12-27] MEDS: CIPROFLOXACIN 400 MG in IV 1 EA IV SCH (09:15)
[2019-12-27] MEDS ORDERED: OMEP40CA97 PO (10:24)
[2019-12-27] MEDS ORDERED: CIPR-249 PO (10:24)
--- NOTE | 2019-12-27 14:48 | DS.PDOC ---
Discharge Summary General Date of Admission Dec 25, 2019 at 22:23 Date of Discharge 12/27/19 Discharge Summary PROCEDURES PERFORMED DURING STAY: Cystoscopy, right retrograde pyelogram, ureteroscopic stone extraction, stent insertion and x-ray interpretation on 12/26/19 DISCHARGE DIAGNOSES: Right distal ureteric stone with right hydroureteronephrosis UTI SECONDARY DIAGNOSIS: Morbid obesity Kidney stones recurrent urinary tract infections overactive bladder GERD COMPLICATIONS/CHIEF COMPLAINT: 59-year-old female with past medical history of recurrent kidney stones, history of recurrent urinary tract infection and obesity who was admitted for right ureterolithiasis, urinary tract infection. Right ureterolithiasis with mild hydroureter s/p removal by cystoscopy, basket extraction and ureteric sten placement. UTI, hx of recurrent UTI UCx multiple organisms, read as contaminated ciprofloxacin Morbid Obesity complicating care. DISCHARGE MEDICATIONS: Please see below. ALLERGIES: Please see below. PHYSICAL EXAMINATION ON DISCHARGE: VITAL SIGNS: Please see below. CONSTITUTIONAL: Appears very uncomfortable in pain. AAO x 3 EYES: PERRLA, EOM intact HEENT, MOUTH: Normocephalic, atraumatic, moist mucous membranes, NECK: SUPPLE, no JVD, no lymphadenopathy, no carotid bruit CV: Regular rate and rhythm, S1S2 normal, no murmurs/rubs/gallops RESPIRATORY: Clear to auscultation bilaterally, no rales/rhonchi/wheezes GI: obese abdomen, BS positive in 4 quadrants, soft, nontender, nondistended, no rebound or guarding, no organomegaly BACK: right flank pain with palpation, pain radiates to the right groin with tapping over right kidney : Deferred MUSCULOSKELETAL: Normal ROM. No cyanosis, clubbing, swelling, joint deformity, extremity edema INTEGUMENTARY: Intact, no rashes, no lesions, no erythema NEUROLOGIC: Cranial Nerves II-XII are intact, no focal deficits PSYCHIATRIC: Mood and affect are normal LABORATORY DATA: Please see below. IMAGING: CT abd/pelvis (prelim reading): 3 mm stone in right distal ureter, mild hydronephrosis ACTIVITY: [As tolerated]. DIET: Diet as tolerated DISPOSITION: 01 Home, Self-Care. DISCHARGE INSTRUCTIONS: Follow up with Urology in 2 weeks for stent removal PMD in 1 week Suggested repeat urine culture. ITEMS TO FOLLOWUP ON ON OUTPATIENT: Stone pathology pending. DISCHARGE CONDITION: [Stable]. TIME SPENT ON DISCHARGE: 35 minutes. Vital Signs/I&Os Vital Signs Date Time Temp Pulse Resp B/P (MAP) Pulse Ox O2 Delivery O2 Flow Rate FiO2 12/27/19 06:00 97.8 83 18 121/77 (92) 97 Nasal Cannula 2.0 I&O- Last 24 Hours up to 6 AM 12/27/19 06:00 Intake Total 825 ml Output Total 1900 ml Balance -1075 ml Laboratory Data Labs 24H Laboratory Tests 2 12/26/19 18:49: 12/27/19 06:35: Immature Granulocyte % (Auto) 0.4, Neutrophils (%) (Auto) 83.6H, Lymphocytes (%) (Auto) 11.8L, Monocytes (%) (Auto) 3.9, Eosinophils (%) (Auto) 0.1, Basophils (%) (Auto) 0.2, Neutrophils # (Auto) 7.5, Lymphocytes # (Auto) 1.1L, Monocytes # (Auto) 0.4, Eosinophils # (Auto) 0.0, Basophils # (Auto) 0.0, Nucleated Red Blood Cells % (auto) 0.0, Anion Gap 7L, Glomerular Filtration Rate > 60.0, Calcium Level 8.5L CBC/BMP Laboratory Tests 12/27/19 06:35 Microbiology Microbiology 12/25/19 Urine Culture - Final, Complete Discharge Medications Scheduled Ciprofloxacin HCl (Cipro) 500 Mg Tablet, 1 TAB PO BID Omeprazole (Omeprazole) 40 Mg Capsule.dr, 1 CAP PO DAILY Oxybutynin Chloride (Oxybutynin Chloride ER) 10 Mg Tab.er.24, 10 MG PO DAILY, (Reported) Scheduled PRN Phenazopyridine HCl (Phenazopyridine HCl) 200 Mg Tablet, 200 MG PO TID PRN for PAIN, (Reported) Allergies Coded Allergies: Penicillins (Verified Allergy, Intermediate, HIVES, 12/25/19) Latex, Natural Rubber (Verified Allergy, Mild, RASH, 12/25/19) Sulfa (Sulfonamide Antibiotics) (Unverified Allergy, Unknown, 12/25/19) bacitracin (Verified Adverse Reaction, Mild, GENERALIZED BURNING, 12/25/19) neomycin (Verified Adverse Reaction, Mild, GENERALIZED BURNING, 12/25/19) polymyxin B (Verified Adverse Reaction, Mild, GENERALIZED BURNING, 12/25/19) GARCÍA TROTTER MD Dec 27, 2019 14:48
== END 2019-12-27 12:35 | disposition home or self-care (01) | DRG 670 ==
LOC: M ED 19:25 → M ED INP 22:23 → M MS5PR 23:20
PROVIDERS: ADMIT Internal Medicine; ATTEND Internal Medicine Nephrology
PROC: 0TC77ZZ Extirpation of Matter from Left Ureter, Via Natural or Artificial Opening (ICD-10-PCS; principal; 2019-12-26 17:30)
DX: N13.2 Hydronephrosis with renal and ureteral calculous obstruction (principal); E66.01 Morbid (severe) obesity due to excess calories; N39.0 Urinary tract infection, site not specified; K21.9 Gastro-esophageal reflux disease without esophagitis; Z79.899 Other long term (current) drug therapy; Z88.0 Allergy status to penicillin; Z91.040 Latex allergy status; Z88.2 Allergy status to sulfonamides; Z88.8 Allergy status to other drugs, medicaments and biological substances; Z87.891 Personal history of nicotine dependence

== ENCOUNTER 2020-01-07 17:11 | Emergency (ER) | payer MEDICARE, OTHER ==
[~2020-01-07] VITALS: Ht 152.4 cm; Wt 111.1 kg
[~2020-01-07 17:11] MED LIST changes: +CIPR-249 PO; +OMEP40CA97 PO; +OXYB10TA23 PO; +PHEN-501 PO
[2020-01-07] MEDS ORDERED: NS 1,000 ML IV ONE (17:45)
[2020-01-07] MEDS ORDERED: KETOROLAC 30 MG/ML 1ML VIAL IV ONE (17:45)
[2020-01-07] MEDS ORDERED: ISOVUE-370 76% 100ML VIAL As Ordered ONE (18:01)
[2020-01-07 18:04] LABS: BASO # 0.1 10^3/uL (0.0-0.2); BASO % 0.6 % (0.0-1.0); EOS # 0.2 10^3/uL (0.0-0.5); EOS % 2.4 % (0.0-3.0); HEMATOCRIT 42.8 % (36.0-47.0); HEMOGLOBIN 14.2 g/dl (12.0-15.5); LYMPH # 1.1 10^3/uL (1.5-5.0); LYMPH % 12.2 % (24.0-44.0); MEAN CORPUSCULAR HEMOGLOBIN 29.5 pg (27.0-33.0); MEAN CORPUSCULAR HGB CONC 33.2 g/dl (32.0-36.5); MONO # 0.8 10^3/uL (0.0-0.8); MONO % 8.1 % (0.0-5.0); NEUTROPHILS # 7.1 10^3/uL (1.5-8.5); NEUTROPHILS % 76.2 % (36.0-66.0); PLATELET COUNT, AUTOMATED 316 10^3/uL (150-450); RED BLOOD COUNT 4.81 10^6/uL (4.00-5.40); WHITE BLOOD COUNT 9.3 10^3/uL (4.0-10.0)
[2020-01-07 18:31] LABS: ALBUMIN 3.5 GM/DL (3.2-5.2); BILIRUBIN,DIRECT 0.1 MG/DL (0.0-0.2); BILIRUBIN,TOTAL 0.4 MG/DL (0.2-1.0); TOTAL PROTEIN 7.4 GM/DL (6.4-8.2)
--- NOTE | 2020-01-07 19:06 | REPVR ---
PROCEDURE INFORMATION: Exam: CT Abdomen And Pelvis With Contrast Exam date and time: 01/07/2020 5:40 PM Age: 59 years old Clinical indication: Device placement; Urinary device; Renal or nephroureteral stent; Prior surgery; Surgery date: <1 month; Surgery type: Stent placement; Additional info: Ureteral stent R side, lots of pressure, fever TECHNIQUE: Imaging protocol: Computed tomography of the abdomen and pelvis with intravenous contrast. Radiation optimization: All CT scans at this facility use at least one of these dose optimization techniques: automated exposure control; mA and/or kV adjustment per patient size (includes targeted exams where dose is matched to clinical indication); or iterative reconstruction. Contrast material: ISOVUE 370; Contrast volume: 100 ml; Contrast route: INTRAVENOUS (IV); COMPARISON: CT ABD PELVIS W/O CONTRAST 12/25/2019 7:54 PM FINDINGS: Lungs: The lung bases are unremarkable. Liver: There is a diffuse decrease in hepatic parenchymal density, consistent with fatty infiltration. Gallbladder and bile ducts: Cholelithiasis. Pancreas: The pancreas is normal. Spleen: The spleen is normal. Adrenals: There are calcifications in the left adrenal gland. Right adrenal gland is unremarkable. Kidneys and ureters: There is no left hydronephrosis. A punctate nonobstructing calculus is seen in the upper pole of the left kidney. Stable left renal cortical cysts are apparent. The measure 2.4 and 2.8 cm. No follow-up required. Stomach and bowel: There is no evidence of intestinal obstruction. Appendix: No evidence of appendicitis. Intraperitoneal space: Unremarkable. No free air. No significant fluid collection. Vasculature: There is no evidence of an infrarenal abdominal aortic aneurysm. The arteries demonstrates diffuse mild atherosclerotic calcification. Lymph nodes: Unremarkable. No enlarged lymph nodes. Bladder: There is a right ureteral stent with proximal end within the right upper pole calyx and distal end within the urinary bladder. There is no right hydronephrosis or perinephric stranding. The urinary bladder is decompressed and not well assessed. Reproductive: Unremarkable as visualized. Bones/joints: Skeletal degeneration. Grade 1 anterior spondylolisthesis of L4 on L5 which may affect the exiting L5 nerve roots and possibly the L4 nerve roots. Soft tissues: Unremarkable. IMPRESSION: There is no evidence of right hydronephrosis or perinephric stranding or abnormal perfusion within the right kidney to suggest pyelonephritis. The proximal end of the stent is within an upper pole calyx in the distal ends within the urinary bladder. Cholelithiasis. Electronically signed by: Najma Durbin On 01/07/2020 19:06:28 PM
[2020-01-07] MEDS ORDERED: ONDANSETRON 4MG/2ML VIAL IV ONE (19:15)
[2020-01-07 19:56] VITALS: BP 147/82
[2020-01-07] MEDS ORDERED: NITROFURANTOIN (MACROBID) 100 MG CAP PO ONE (20:00)
[2020-01-07] MEDS ORDERED: cefTRIAXone SOD 1 GM in D5W MINI-BAG PLUS 50 ML IV ONE (20:00)
[2020-01-07] MEDS ORDERED: MACR100C43 PO (20:20)
== END 2020-01-07 20:39 | disposition home or self-care (01) ==
LOC: M ED 17:11
DX: N99.89 Other postprocedural complications and disorders of genitourinary system (principal); N39.0 Urinary tract infection, site not specified; K80.70 Calculus of gallbladder and bile duct without cholecystitis without obstruction; R11.0 Nausea; Z88.0 Allergy status to penicillin; Z88.2 Allergy status to sulfonamides; Z88.1 Allergy status to other antibiotic agents; Z91.040 Latex allergy status; Z79.899 Other long term (current) drug therapy
CPT/HCPCS: 36415; 74177; 80047; 80076; 81001; 83690; 85025; 87088; 87186; 96361; 96365; 96375; 99284; J0696; J1885; J2405; Q9967

== ENCOUNTER → 2020-11-08 | Outpatient (REF) | payer OTHER ==
[~2020-11-08] MED LIST changes: -CLIN150C14 PO; +CLIN150C15 PO; +MACR100C43 PO; +NAPR-849; -NAPR250T4
[2020-11-08 10:30] LABS: HEMATOCRIT 43.6 % (36.0-47.0); HEMOGLOBIN 14.6 g/dl (12.0-15.5); MEAN CORPUSCULAR HEMOGLOBIN 30.9 pg (27.0-33.0); MEAN CORPUSCULAR HGB CONC 33.5 g/dl (32.0-36.5); MEAN CORPUSCULAR VOLUME 92.2 fl (80.0-96.0); PLATELET COUNT, AUTOMATED 318 10^3/uL (150-450); RED BLOOD COUNT 4.73 10^6/uL (4.00-5.40); WHITE BLOOD COUNT 7.2 10^3/uL (4.0-10.0)
[2020-11-08 11:11] LABS: ALBUMIN 3.6 GM/DL (3.2-5.2); ALT/SGPT 29 U/L (12-78); BILIRUBIN,TOTAL 0.3 MG/DL (0.2-1.0); BLOOD UREA NITROGEN 15 MG/DL (7-18); CALCIUM LEVEL 8.9 MG/DL (8.8-10.2); CARBON DIOXIDE LEVEL 27 MEQ/L (21-32); CHLORIDE LEVEL 107 MEQ/L (98-107); CREATININE FOR GFR 0.68 MG/DL (0.55-1.30); FREE T4 0.97 NG/DL (0.76-1.46); GLOMERULAR FILTRATION RATE > 60.0 (>45); GLUCOSE, FASTING 105 MG/DL (70-100); POTASSIUM SERUM 4.5 MEQ/L (3.5-5.1); SODIUM LEVEL 139 MEQ/L (136-145); TOTAL PROTEIN 6.8 GM/DL (6.4-8.2)
== END ==
LOC: M SFHCPLAZ 08:59
DX: R53.83 Other fatigue (principal); R73.03 Prediabetes

== ENCOUNTER → 2020-11-27 | Outpatient (REF) | payer OTHER | LOC: M SFHCPLAZ 09:03 | PROVIDERS: ATTEND Family Medicine | DX: R06.00 Dyspnea, unspecified (principal) ==

== ENCOUNTER → 2020-11-27 | Outpatient (CLI) | payer OTHER ==
--- NOTE | 2020-11-27 09:44 | REPPI ---
INDICATION: R06.00 DYSPNEA ON EXERTION COMPARISON: 06/18/2017 TECHNIQUE: PA and lateral. FINDINGS: The mediastinum and cardiac silhouette are normal. The lung patricia are clear and without acute consolidation, effusion, or pneumothorax. The skeletal structures are intact and normal. IMPRESSION: No acute cardiopulmonary process. If the patient remains symptomatic consider chest CT for further investigation. <Electronically signed by Tevin Terry > 11/27/20 0940
== END ==
LOC: M PLAIMG 09:20
PROVIDERS: ATTEND Hospitalist
DX: R06.00 Dyspnea, unspecified (principal)

== ENCOUNTER 2021-03-07 17:25 | Emergency (ER) | payer OTHER ==
[~2021-03-07] VITALS: Ht 127 cm; Wt 111.4 kg
[~2021-03-07 17:25] MED LIST changes: -CLIN150C15 PO; +CLIN150C17 PO; +OMEP40CA4 PO; -OMEP40CA97 PO
[2021-03-07 17:27] VITALS: BP 125/80
[2021-03-08] MEDS ORDERED: IBUP-1022 PO (09:58)
== END 2021-03-07 21:00 | disposition left against medical advice (07) ==
LOC: M ED 17:25
DX: Z53.21 Procedure and treatment not carried out due to patient leaving prior to being seen by health care provider (principal)

== ENCOUNTER 2021-03-08 09:18 | Emergency (ER) | payer OTHER ==
[2021-03-08] MEDS ORDERED: ACETAMINOPHEN 500 MG TAB PO ONE (09:30)
[2021-03-08] MEDS ORDERED: IBUP-1022 PO (09:58)
[2021-03-08] MEDS: NS 1,000 ML IV SCH ×2 (10:21→13:36)
[2021-03-08 10:26] LABS: BLOOD UREA NITROGEN 12 MG/DL (7-18); CALCIUM LEVEL 8.7 MG/DL (8.8-10.2); CARBON DIOXIDE LEVEL 25 MEQ/L (21-32); CHLORIDE LEVEL 106 MEQ/L (98-107); CREATININE FOR GFR 0.78 MG/DL (0.55-1.30); GLOMERULAR FILTRATION RATE > 60.0 (>45); GLUCOSE, FASTING 124 MG/DL (70-100); POTASSIUM SERUM 3.6 MEQ/L (3.5-5.1); SODIUM LEVEL 139 MEQ/L (136-145)
[2021-03-08 10:29] LABS: BASO % 0.8 % (0.0-1.0); EOS % 0.8 % (0.0-3.0); HEMOGLOBIN 14.5 g/dl (12.0-15.5); LYMPH # 0.9 10^3/uL (1.5-5.0); LYMPH % 18.7 % (24.0-44.0); MEAN CORPUSCULAR HEMOGLOBIN 30.5 pg (27.0-33.0); MEAN CORPUSCULAR HGB CONC 33.7 g/dl (32.0-36.5); MEAN CORPUSCULAR VOLUME 90.3 fl (80.0-96.0); MONO # 0.9 10^3/uL (0.0-0.8); MONO % 18.1 % (2.0-8.0); NEUTROPHILS # 3.1 10^3/uL (1.5-8.5); NEUTROPHILS % 60.8 % (36.0-66.0); PLATELET COUNT, AUTOMATED 256 10^3/uL (150-450); RED BLOOD COUNT 4.76 10^6/uL (4.00-5.40)
[2021-03-08 11:49] LABS: RSV AMPLIFICATION NEGATIVE (NEGATIVE)
[2021-03-08 14:29] VITALS: BP 115/59
== END 2021-03-08 14:31 | disposition home or self-care (01) ==
LOC: EDBD 09:18 → M ED 09:18
DX: U07.1 COVID-19 (principal); J45.909 Unspecified asthma, uncomplicated; Z87.442 Personal history of urinary calculi; Z87.11 Personal history of peptic ulcer disease; Z88.0 Allergy status to penicillin; Z88.2 Allergy status to sulfonamides; Z88.1 Allergy status to other antibiotic agents; Z91.040 Latex allergy status; Z79.899 Other long term (current) drug therapy

== ENCOUNTER 2021-03-08 14:35 | Outpatient (CLI) | payer OTHER ==
[~2021-03-08] VITALS: Ht 152.4 cm; Wt 111.5 kg
[~2021-03-08 14:35] MED LIST changes: +ACETAMINOPHEN TAB 650MG DOSE (2X325MG) PO PRN; +ALBUTEROL 90 MCG/ACT 8GM HFA INHALER INH PRN; +ALBUTEROL SULFATE 2.5 MG/0.5 ML INH NEB SOLN INH PRN; +EPINEPHrine INJ 1 MG/ML 1ML AMP IM PRN; +IBUP-1022 PO; +NS 1,000 ML IV SCH; +diphenhydrAMINE 50MG/ML VIAL (J1200) IV PRN; +methylPREDNISolone 125MG 2ML VIAL IV PRN
[2021-03-08 14:38] VITALS: BP 124/68
[2021-03-08] MEDS ORDERED: CASIRIVIMAB/IMDEVIMAB 1,200 MG in NS 250 ML IV ONE (15:00)
[2021-03-08 15:14] VITALS: BP 112/65
[2021-03-08 15:44] VITALS: BP 129/65
[2021-03-08 16:14] VITALS: BP 105/60
[2021-03-08 16:23] VITALS: BP 111/63
[2021-03-08 17:29] VITALS: BP 126/60
== END 2021-03-08 18:02 | disposition home or self-care (01) ==
LOC: M OPCLI4 14:35
PROVIDERS: ATTEND Emergency Medicine
DX: U07.1 COVID-19 (principal); Z88.0 Allergy status to penicillin; Z88.1 Allergy status to other antibiotic agents; Z88.2 Allergy status to sulfonamides; Z91.040 Latex allergy status

== ENCOUNTER 2021-11-05 00:02 | Emergency (ER) | payer OTHER ==
[~2021-11-05] VITALS: Ht 152.4 cm; Wt 106.2 kg
[~2021-11-05 00:02] MED LIST changes: -ACETAMINOPHEN TAB 650MG DOSE (2X325MG) PO PRN; -ALBUTEROL 90 MCG/ACT 8GM HFA INHALER INH PRN; -ALBUTEROL SULFATE 2.5 MG/0.5 ML INH NEB SOLN INH PRN; -EPINEPHrine INJ 1 MG/ML 1ML AMP IM PRN; -NS 1,000 ML IV SCH; -diphenhydrAMINE 50MG/ML VIAL (J1200) IV PRN; -methylPREDNISolone 125MG 2ML VIAL IV PRN
[2021-11-05] MEDS ORDERED: methocarbamoL 500 MG TAB PO ONE (00:55)
[2021-11-05] MEDS ORDERED: KETOROLAC 30 MG/ML 1ML VIAL IM ONE (00:55)
[2021-11-05] MEDS ORDERED: METH-1165 PO (02:44)
[2021-11-05] MEDS ORDERED: NAPR-837 PO (02:44)
[2021-11-05] MEDS ORDERED: NEUR300C PO (02:44)
[2021-11-05] MEDS ORDERED: GABAPENTIN 300 MG CAP PO ONE (02:45)
[2021-11-05 02:53] VITALS: BP 138/80
== END 2021-11-05 02:55 | disposition home or self-care (01) ==
LOC: M ED 00:02
DX: M54.12 Radiculopathy, cervical region (principal); J45.909 Unspecified asthma, uncomplicated; Z88.0 Allergy status to penicillin; Z88.2 Allergy status to sulfonamides; Z88.8 Allergy status to other drugs, medicaments and biological substances; Z91.040 Latex allergy status; Z79.899 Other long term (current) drug therapy
CPT/HCPCS: 72125; 73030; 96372; 99284; J1885

== ENCOUNTER → 2021-12-01 | Outpatient (REF) | payer OTHER ==
[~2021-12-01] MED LIST changes: +METH-1165 PO; +NAPR-837 PO; +NEUR300C PO
== END ==
LOC: M SFHCPLAZ 10:20
PROVIDERS: ATTEND Family Medicine
DX: Z53.9 Procedure and treatment not carried out, unspecified reason (principal)

== ENCOUNTER → 2022-01-22 | Outpatient (CLI) | payer OTHER ==
[2022-01-22 14:09] LABS: BLOOD UREA NITROGEN 16 MG/DL (7-18); CARBON DIOXIDE LEVEL 32 MEQ/L (21-32); CHLORIDE LEVEL 104 MEQ/L (98-107); CREATININE FOR GFR 0.64 MG/DL (0.55-1.30); GLOMERULAR FILTRATION RATE > 60.0 (>45); GLUCOSE, FASTING 109 MG/DL (70-100); POTASSIUM SERUM 4.1 MEQ/L (3.5-5.1); SODIUM LEVEL 140 MEQ/L (136-145)
== END ==
LOC: M PLALAB 10:23
PROVIDERS: ATTEND Student in an Organized Health Care Education/Training Program
DX: R73.03 Prediabetes (principal)

== ENCOUNTER → 2024-07-07 | Outpatient (REF) | payer OTHER, MEDICAID ==
[~2024-07-07] MED LIST changes: -OXYC-403 PO; +OXYC-673 PO
[2024-07-07 21:15] LABS: APPEARANCE, URINE CLOUDY (CLEAR); BACTERIA, URINE AUTO 1+ (NEGATIVE); BILIRUBIN, URINE AUTO NEGATIVE (NEGATIVE); BLOOD, URINE BLOOD NEGATIVE (NEGATIVE); CALCIUM OXALATE CRYSTALS MODERATE; COLOR, URINE YELLOW (YELLOW); GLUCOSE, URINE (UA) AUTO NEGATIVE (NEGATIVE); KETONE, URINE AUTO NEGATIVE (NEGATIVE); LEUKOCYTE ESTERASE, URINE AUTO 2+ (NEGATIVE); MUCUS, URINE MODERATE (NEGATIVE); NITRITE, URINE AUTO NEGATIVE (NEGATIVE); PROTEIN, URINE AUTO 1+ mg/dL (NEGATIVE); RBC, URINE AUTO 5 /HPF (0-3); SPECIFIC GRAVITY URINE AUTO 1.032 (1.002-1.035); SQUAMOUS EPITHELIAL CELL UR AU 12 /HPF (0-6); UROBILINOGEN, URINE AUTO 0.2 mg/dL (0.0-2.0); WBC, URINE AUTO 37 /HPF (0-3)
== END ==
LOC: M LAB REF 20:42
PROVIDERS: ATTEND Physician Assistant
DX: N39.0 Urinary tract infection, site not specified (principal)

== ENCOUNTER → 2025-06-04 | Outpatient (REF) | payer OTHER, MEDICAID ==
[~2025-06-04] MED LIST changes: -IBUP-1022 PO; +IBUP600T42 PO; -VITA500T17 PO; +VITA500T8 PO
[2025-06-04 18:43] LABS: APPEARANCE, URINE HAZY (CLEAR); BACTERIA, URINE AUTO NEGATIVE (NEGATIVE); BILIRUBIN, URINE AUTO NEGATIVE (NEGATIVE); BLOOD, URINE BLOOD NEGATIVE (NEGATIVE); GLUCOSE, URINE (UA) AUTO NEGATIVE (NEGATIVE); KETONE, URINE AUTO NEGATIVE (NEGATIVE); LEUKOCYTE ESTERASE, URINE AUTO 1+ (NEGATIVE); MUCUS, URINE SMALL (NEGATIVE); NITRITE, URINE AUTO NEGATIVE (NEGATIVE); PROTEIN, URINE AUTO NEGATIVE (NEGATIVE); RBC, URINE AUTO 4 /HPF (0-3); SPECIFIC GRAVITY URINE AUTO 1.021 (1.002-1.035); SQUAMOUS EPITHELIAL CELL UR AU 5 /HPF (0-6); UROBILINOGEN, URINE AUTO 0.2 mg/dL (0.0-2.0); WBC, URINE AUTO 21 /HPF (0-3)
== END ==
LOC: M LAB REF 17:06
PROVIDERS: ATTEND Physician Assistant Medical
DX: N39.0 Urinary tract infection, site not specified (principal)